=== PATIENT | male | born 1980 | race Caucasian/White ===

== ENCOUNTER 2017-05-18 22:59 | Inpatient (IN) | payer MEDICAID, SELFPAY ==
[2017-05-18 23:00] VITALS: BP 147/92; PULSE 74; RESP 16; TEMP 36.5; O2SAT 99; BMI 26.6
[2017-05-18 23:21] VITALS: BP 150/80; PULSE 80; RESP 16; O2SAT 98
--- NOTE | 2017-05-18 23:47 | ED.VISSUMM ---
- ER Visit Summary Date of Service: 05/18/17 Chief Complaint: Alcohol withdrawal History of Present Illness: The patient is a 36 M who reports that he typically drinks 4-6 cans of beer per night. States that he has wine or liquor every blue coronel. States his last drink was approximately 2 hours ago. He also reports that he has been on Xanax. He is taking 1 mg twice daily for approximately 1 year. His primary care physician was weaning him down for the past 10 days and had him on 0.5 mg twice daily. Patient reports that he was admitted to the hospital in [place] last night and discharged today and is having severe withdrawal syndrome. He describes chills, tremors, anxiety, nausea and vomiting. Physical Examination: Vitals: Stable. Afebrile. General: Well-nourished and well-developed. Head: Normocephalic atraumatic. Neck: Supple, no lymphadenopathy. No JVD. Nontender. Cardiovascular: Regular rate and rhythm. No murmurs. Respiratory: No respiratory distress. Clear to auscultation bilaterally. Abdominal: Soft, nontender, nondistended, normal bowel sounds. No guarding, rebound, or peritoneal signs. Back: Nontender. Extremities: Nontender, no edema. Skin: Normal color, no rash. Neurologic: Alert and oriented ?3. Cranial nerves II through XII are intact. Normal strength and sensation. Psych: Normal affect. Test Results: Screening labs were obtained. They are pending. Emergency Department Course and Treatment: Patient had a [facility] core of 39. He had an IV placed. He is given Zofran p.o., Ativan IV, and Librium p.o. Treatment Plan: The patient was discussed with Dr. Sparks. He will be admitted to the hospital for further relation and treatment. Disposition: Admitted in improved condition. Impression: 1. Alcohol and benzodiazepine withdrawal. This note was generated with Transmit dictation software. It may contain incorrect words, spelling, and punctuation that were not noted in review of the chart prior to signing ED Disposition - Plan for ED Patient: Chief Complaint: Subst Abuse Referrals: [facility] Doctor,Out of [Primary Care Provider] -
[2017-05-18] MEDS: chlordiazePOXIDE 25 MG Capsule 50 MG PO (23:50)
--- NOTE | 2017-05-18 23:50 | ED.DCSUM_ITS ---
- ER Visit Summary Date of Service: 05/18/17 Chief Complaint: Alcohol withdrawal History of Present Illness: The patient is a 36 M who reports that he typically drinks 4-6 cans of beer per night. States that he has wine or liquor every blue coronel. States his last drink was approximately 2 hours ago. He also reports that he has been on Xanax. He is taking 1 mg twice daily for approximately 1 year. His primary care physician was weaning him down for the past 10 days and had him on 0.5 mg twice daily. Patient reports that he was admitted to the hospital in [place] last night and discharged today and is having severe withdrawal syndrome. He describes chills, tremors, anxiety, nausea and vomiting. Physical Examination: Vitals: Stable. Afebrile. General: Well-nourished and well-developed. Head: Normocephalic atraumatic. Neck: Supple, no lymphadenopathy. No JVD. Nontender. Cardiovascular: Regular rate and rhythm. No murmurs. Respiratory: No respiratory distress. Clear to auscultation bilaterally. Abdominal: Soft, nontender, nondistended, normal bowel sounds. No guarding, rebound, or peritoneal signs. Back: Nontender. Extremities: Nontender, no edema. Skin: Normal color, no rash. Neurologic: Alert and oriented ?3. Cranial nerves II through XII are intact. Normal strength and sensation. Psych: Normal affect. Test Results: Screening labs were obtained. They are pending. Emergency Department Course and Treatment: Patient had a [facility] core of 39. He had an IV placed. He is given Zofran p.o., Ativan IV, and Librium p.o. Treatment Plan: The patient was discussed with Dr. Sparks. He will be admitted to the hospital for further relation and treatment. Disposition: Admitted in improved condition. Impression: 1. Alcohol and benzodiazepine withdrawal. This note was generated with [employer]ible Magic dictation software. It may contain incorrect words, spelling, and punctuation that were not noted in review of the chart prior to signing ED Disposition - Plan for ED Patient: Chief Complaint: Subst Abuse Referrals: [facility] Doctor,Out of [Primary Care Provider] -
--- NOTE | 2017-05-18 23:51 | HP.PCM_ITS ---
Problem List (1) Benzodiazepine withdrawal Status: Acute (2) Alcohol withdrawal Status: Acute History of Present Illness Date of Admission: 05/18/17 Chief Complaint: Benzo withdrawal The patient is a 36 year old male w/ h/o EtOH abuse and recent benzo abuse is admitted for withdrawal symptoms. He was recently admitted to a hospital in [place] and was discharged today. He drove with his sister straight from the hospital to [facility] for his severe withdrawal symptoms. He is anxious, agitated and panicking. He is not confused or disorientated. He is also experiencing auditory and visual hallucinations, although benign. He is not angry or aggressive. Nothing appeared to make his anxiety better or worse. He gets so nervous that he has tremors. He wants to be admitted for withdrawal management . He has been abusing benzo as outpt when his father a year ago. He also has had multiple withdrawal managements and has relapsed. He also has been an alcoholic and will drink 4-8 beers a night for many years. Past Medical History Allergies Penicillins Allergy (Verified 05/18/17 23:02) Swelling rosuvastatin [From Crestor] Allergy (Verified 05/18/17 23:02) Unknown Home Medications: Ambulatory Orders Medication Instructions Recorded Atorvastatin Calcium [Lipitor] 40 mg PO QHS 05/18/17 BusPIRone [Buspar] 7.5 mg PO BID 05/18/17 Escitalopram Oxalate [Lexapro] 10 mg PO DAILY 05/18/17 Metoprolol Tartrate [Lopressor 50 mg PO DAILY 05/18/17 (Beta Daniela)] Surgical History: no surgical history Lives: Alone Smoking Status: Current every day smoker Alcohol: None Drugs: None - *Family History Maternal History Items: No pertinent history Review of Systems Constitutional: Denies: Chills, Fever, Weight Change HEENT: Denies: Head Aches, Sinus Congestion, Sinus Drainage Cardiovascular: Denies: Chest Pain, Palpitations Respiratory: Denies: Cough, Shortness of breath at rest, Sputum production Gastrointestinal: Denies: Abdominal Pain, Nausea, Vomiting Genitourinary: Denies: Dysuria Musculoskeletal: Denies: Joint Pain, Joint Tenderness Skin: Denies: Rash, Wounds Neurological: Denies: Numbness, Tingling, Focal weakness Psychiatric: Denies: Anxiety, Depression, Homicidal Ideations, Suicidal Ideations Hematologic/ Lymphatic: Denies: Easy Bruising, Easy Bleeding VTE Information - Inpt Only VTE Present on Admission: No VTE Mechan Device Prophylaxis: SCD's VTE Pharm Prophylaxis ordered?: Yes Patient Problems: Active and Suspected Problems Benzodiazepine withdrawal (Acute) Alcohol withdrawal (Acute) - Physical Exam General: Alert, Oriented x3, Cooperative HEENT: Atraumatic, PERRLA, EOMI, Normocephalic Neck: Supple, No JVD, Negative Carotid Bruits Lungs: Clear to auscultation, Normal air movement Cardiovascular: Regular rate, No murmurs Abdomen: Bowel Sounds Present, Soft, Non Tender Extremities: No edema, Capillary Refill Less than 3 Seconds Skin: No rashes, No breakdown Musculoskeletal: No Tenderness to Palpation of Joints or Extremities Neurological: Cranial nerves II-XII grossly intact Psych/Mental Status: Normal Affect, Appropriate Vital Signs Temp Pulse Resp BP Pulse Ox 97.7 F L 80 16 150/80 H 98 05/18/17 23:00 05/18/17 23:21 05/18/17 23:21 05/18/17 23:21 05/18/17 23:21 Oxygen Delivery Method Room Air Weight: 79.379 kg Body Mass Index (BMI) 26.6 Assessment/Plan Active and Suspected Problems Benzodiazepine withdrawal (Acute) Alcohol withdrawal (Acute) 36 year old male w/ h/o EtOH abuse and recent benzo abuse is admitted for withdrawal symptoms. 1) Benzo withdrawal: Will start taper. Consulted [facility]. Monitor. 2) EtOH withdrawal: No e/o DT. CIWA protocol.. Monitor. 3) Prophylaxis: SCD / heparin.
[2017-05-18] MEDS: 0.9% Normal Saline 1,000 ML 1000 ML IV (23:52)
[2017-05-18] MEDS: Ondansetron ODT 4 MG Tablet PO (23:56)
[2017-05-18] MEDS: LORazepam 2 MG/ML Syringe 1 MG IV (23:56)
[2017-05-19] VITALS (13 sets, daily range): BP systolic 118–150; BP diastolic 71–89; PULSE 61–83; RESP 16–22; TEMP 36.7–37.7; O2SAT 97–99; BMI 27.5; BMI 27.6
[2017-05-19] LABS: Absolute Lymphocyte Count 2.34 X10^3/ul (0.83-4.51); Absolute Neutrophil Count 4.6 X10^3/uL (2.0-7.7); Basophil# 0.01 X10^3/uL; Basophil% 0.1 % (0-1); Eosinophil# 0.07 X10^3/uL; Eosinophils% 0.9 % (0-5); Hematocrit 41.8 % (40-54); Hemoglobin 14.8 g/dl (13.0-16.5); Lymphocyte # 2.34 X10^3/ul (4.0); Lymphocyte % 30.4 % (19-41); Mean Corp Hgb Conc 35.4 g/gl (32-36); Mean Corpuscular Hgb 32.8 pg (27.0-32.0); Mean Corpuscular Volume 92.7 fL (80-94); Monocyte# 0.72 X10^3/uL; Monocyte% 9.3 % (0-10); Neutrophil # 4.55 X10^3/uL (2.7-7.7); Platelet Count 253 K/mm3 (150-450); RBC Distribution Width CV 11.7 % (11.6-14.6); RBC Distribution Width SD 38.8 fl (35.1-43.9); Red Blood Count 4.51 M/mm3 (4.6-6.2); White Blood Count 7.7 K/mm3 (4.4-11.0)
[2017-05-19 00:02] LABS: POSITIVE COUNT NO; POSITIVE DIFFERENTIAL NO; POSITIVE MORPHOLOGY NO
[2017-05-19 00:41] LABS: Alcohol, Blood (Medical)-Serum < 3.0 mg/dL
[2017-05-19 00:42] LABS: Anion Gap 10 (5-15); BUN 7 mg/dL (7-18); BUN/Creat Ratio 8.7 RATIO (10-20); Chloride 102 mmol/L (98-107); EST Glomerular Filtration Rate 116 mL/min (>60); Est Glom Filt Rate - Afr Amer 140 mL/min (>60); Glucose 83 mg/dL (74-106); Potassium 3.6 mmol/L (3.5-5.1); Sodium Level 139 mmol/L (136-145)
[2017-05-19] MEDS: QUEtiapine 25 MG Tablet PO (01:54)
[2017-05-19] MEDS: Dicyclomine 10 MG Capsule 20 MG PO (01:54)
[2017-05-19] MEDS: Methocarbamol 750 MG Tablet PO (01:55)
[2017-05-19] MEDS: LORazepam 1 MG Tablet PO ×5 (04:42→21:10)
[2017-05-19 05:42] LABS: Absolute Lymphocyte Count 2.24 X10^3/ul (0.83-4.51); Absolute Neutrophil Count 3.1 X10^3/uL (2.0-7.7); Basophil# 0.01 X10^3/uL; Basophil% 0.2 % (0-1); Eosinophil# 0.09 X10^3/uL; Eosinophils% 1.5 % (0-5); Hematocrit 38.9 % (40-54); Hemoglobin 13.6 g/dl (13.0-16.5); Lymphocyte # 2.24 X10^3/ul (4.0); Lymphocyte % 37.4 % (19-41); Mean Corpuscular Hgb 32.5 pg (27.0-32.0); Mean Corpuscular Volume 92.8 fL (80-94); Monocyte# 0.54 X10^3/uL; Neutrophil % 51.7 % (47-70); Platelet Count 207 K/mm3 (150-450); RBC Distribution Width CV 11.7 % (11.6-14.6); RBC Distribution Width SD 38.9 fl (35.1-43.9); Red Blood Count 4.19 M/mm3 (4.6-6.2)
[2017-05-19 05:50] LABS: POSITIVE COUNT NO; POSITIVE DIFFERENTIAL NO; POSITIVE MORPHOLOGY NO
[2017-05-19 06:04] LABS: ALB/GLOB Ratio 1.2 RATIO (0.9-2.4); AST(SGOT) 28 U/L (15-37); Alanine Aminotransfer ALT/SGPT 42 U/L (16-61); Albumin, Serum 3.5 g/dL (3.2-5.0); Alkaline Phosphatase 40 U/L (45-117); Anion Gap 6 (5-15); BUN 7 mg/dL (7-18); BUN/Creat Ratio 9.9 RATIO (10-20); Calcium,Total 8.3 mg/dL (8.5-10.1); Chloride 105 mmol/L (98-107); Creatinine, Serum 0.71 mg/dL (0.70-1.30); EST Glomerular Filtration Rate 134 mL/min (>60); Est Glom Filt Rate - Afr Amer 162 mL/min (>60); Glucose 82 mg/dL (74-106); Magnesium 2.4 mg/dL (1.6-2.6); Potassium 3.6 mmol/L (3.5-5.1); Protein, Total 6.5 g/dL (6.4-8.2); Sodium Level 140 mmol/L (136-145)
--- NOTE | 2017-05-19 07:47 | PN_ITS ---
Patient Problems: Active and Suspected Problems Benzodiazepine withdrawal (Acute) Alcohol withdrawal (Acute) Subjective: Patient seated upright in bed, no acute distress, notes feeling improved since initial presentation, states symptoms are improving. Patient upon further discussion notes he was taking up to 3 mg Xanax daily although more recently states 2 mg. He notes he quit smoking approximately 2 days prior and declines nicotine patch at this time. Interested in aggressive therapies including rehabilitation facility following acute inpatient withdrawal treatment. Stressed need to await [facility] evaluation on Sunday given not available over the weekend. Patient denies fevers, chills, nausea, emesis, abdominal pain, chest pain or dyspnea. Objective: Physical Examination: General: awake, alert, oriented x 3 and cooperative, seated upright in bed in no apparent distress. Skin: normal color, turgor, no icterus, cyanosis. HEENT: AT/NC, EOMI, PERRLA, MMM. Lungs: CTA bilaterally, moderate effort, mild decrease BL bases, no rales, ronchi or wheezing. Heart: Regular rate and rhythm; no gallop, rub audible. Abdomen: soft, NTTP, ND, normal BS. Extremities: no cyanosis, clubbing, or edema. Neurological: patient awake, alert, oriented x 3; cognitive function intact; pupils equally reactive to light and accomodation; cranial nerves II-XII grossly normal, moving all 4 extremities, no focal deficits, strength mildly globally decreased. Psychiatric: affect appears normal, no acute evidence of depressive or anxiety feelings. Vitals/I&O's: Vital Signs Temp Pulse Resp BP Pulse Ox 98.1 F 63 18 118/73 99 05/19/17 04:47 05/19/17 06:00 05/19/17 04:47 05/19/17 04:47 05/19/17 04:46 Oxygen Delivery Method Room Air Weight: 173 lb 5 oz Body Mass Index (BMI) 27.5 Intake and Output for Last 24 Hours 05/17/17 05/18/17 05/19/17 23:59 23:59 23:59 Intake Total 200 / 200 Balance 200 / 200 Laboratory Results 05/19/17 05:20: WBC 6.0, RBC 4.19 L, Hgb 13.6, Hct 38.9 L, MCV 92.8, MCH 32.5 H , MCHC 35.0, RDW 11.7, RDW Differential 38.9, Plt Count 207, MPV 9.0, Immature Gran % (Auto) 0.200, Neut % (Auto) 51.7, Lymph % (Auto) 37.4, [place] % (Auto) 9.0 , Eos % (Auto) 1.5, Baso % (Auto) 0.2, Absolute Neuts (auto) 3.1, Absolute Lymphs (auto) 2.24, Total Counted Not Reportable 05/19/17 05:20: Sodium 140, Potassium 3.6, Chloride 105, Carbon Dioxide 29.0, Anion Gap 6, BUN 7, Creatinine 0.71, Estim Creat Clear Calc 129.80, Est GFR ( MDRD) Af Amer 162, Est GFR (MDRD) Non-Af 134, BUN/Creatinine Ratio 9.9 L, Glucose 82, Calcium 8.3 L, Magnesium 2.4, Total Bilirubin 0.80, AST 28, ALT 42, Alkaline Phosphatase 40 L, Total Protein 6.5, Albumin 3.5, Globulin 3.0, Albumin /Globulin Ratio 1.2 Current Medications Atorvastatin Calcium (Lipitor) 40 mg PO QHS [facility] Buspirone HCl (Buspirone Hcl) 7.5 mg PO BID [facility] Diazepam (Valium) 5 mg PO DAILY PRN PRN PRN Reason: Agitation Dicyclomine HCl (Bentyl) 20 mg PO Q6H PRN PRN PRN Reason: abdominal discomfort Last Admin: 05/19/17 01:54 Dose: 20 mg Escitalopram Oxalate (Lexapro) 10 mg PO DAILY [facility] Folic Acid (Folic Acid) 1 mg PO DAILY@0800 [facility] Stop: 05/21/17 08:01 Heparin Sodium (Porcine) (Heparin Na) 5,000 unit SC Q8 [facility] Last Admin: 05/19/17 07:05 Dose: Not Given Hydroxyzine Pamoate (Vistaril) 50 mg PO Q6H PRN PRN PRN Reason: Mild Anxiety (score 1/3) Lorazepam (Ativan) 1 mg PO Q24H PRN PRN Reason: Agitation Lorazepam (Ativan) 2 mg IV Q2H PRN PRN; Protocol PRN Reason: CIWA score > 8 but <15 Lorazepam (Ativan) 2 mg IV UD PRN; Protocol PRN Reason: CIWA score >/=15. Lorazepam (Ativan) 2 mg PO Q2H PRN PRN; Protocol PRN Reason: CIWA score > 8 but <15 Lorazepam (Ativan) 2 mg PO UD PRN; Protocol PRN Reason: CIWA score >/=15. Lorazepam (Ativan) 1 mg PO Q4H JOYCE PRN Reason: Taper Stop: 05/22/17 04:29 Last Admin: 05/19/17 04:42 Dose: 1 mg Methocarbamol (Methocarbamol) 750 mg PO Q6H PRN PRN PRN Reason: Muscle Aches Last Admin: 05/19/17 01:55 Dose: 750 mg Metoprolol Tartrate (Lopressor (Beta Daniela)) 50 mg PO DAILY [facility] Multivitamins/Minerals ([facility]) [facility] Nutritional Formula (Lactose Free) (Ensure Enlive) 120 ml PO 4X/DAY [facility] Quetiapine Fumarate (Seroquel) 25 mg PO Q6H PRN PRN PRN Reason: Moderate Anxiety (score 2/3) Last Admin: 05/19/17 01:54 Dose: 25 mg Sodium Chloride () 5 - 30 ml IV UD PRN PRN Reason: SALINE FLUSH Thiamine HCl (Vitamin B1) 100 mg PO BIDCM JOYCE Stop: 05/21/17 17:01 Assessment/Plan Active and Suspected Problems Benzodiazepine withdrawal (Acute) Alcohol withdrawal (Acute) The patient is a 36 y/o M w/ PMHx: HTN, HLD, Anxiety and Depression, Tobacco use , EtOH abuse (4-8 beers/night), BZD Abuse (Following Father's x 1 year, notes up to 3 mg per day) who presents to the [facility] ED on 05/18/17 from recent admission in [place] w/ discharge on day of [facility] presentation with worsening withdrawal sxs including auditory and visual hallucinations, tremors, increased anxiety. (1) Acute EtOH and BZD Withdrawal: Admitted to [place], routine labs obtained per ED , UDS pending, unremarkable CBC, unremarkable CMP, EtOH < 3, initiated and continue on [facility] service protocol with taper course of ativan, PRN valium , as needed Seroquel, Catapres, Bentyl, Vistaril, IV fluids, IV antiemetics, Tylenol as needed for pain. Once patient clinically improved and completion of taper nearing will plan [facility] assistance for transition to next level of rehabilitation care. Given BZD abuse, will need [facility] assistance to determine outpatient physician for BZD tapering. Mag normal, phos pending. Maintain on CIWA protocol, MVI, thiamine, folic acid supplementation. (2) Hypertension: Maintain on home metoprolol regimen, although odd choice for his age, possible BB secondary to concurrent anxiety also. (3) Hyperlipidemia: Maintain on home statin regimen. (4) Anxiety and Depression: Maintain on home regimen lexapro, buspar. (5) Tobacco Abuse: Encouraged cessation, inpatient consultation per RT, NR if desired. (6) DVT Prophylaxis: MADDY, low risk, ambulation. Code Visit Inpatient E&M: 68339 Subs Hosp L2
[2017-05-19] MEDS: Multivitamins,Ther W-Minerals Tablet 1 TABLET PO (09:19)
[2017-05-19] MEDS: Escitalopram Oxalate 10 MG Tablet PO (09:19)
[2017-05-19] MEDS: Folic Acid 1 MG Tablet PO (09:19)
[2017-05-19] MEDS: Thiamine Hydrochloride 100 MG Tablet PO ×2 (09:19→17:51)
[2017-05-19 11:16] LABS: Phosphorus 4.4 mg/dL (2.5-4.9)
[2017-05-19 14:39] LABS: Amphetamine Urine VISTA NEGATIVE (<1000 ng/mL); Barbiturate Urine VISTA NEGATIVE (< 200 ng/mL); Benzodiazepine Urine VISTA POSITIVE (< 200 ng/mL); Cocaine Urine VISTA NEGATIVE (< 300 ng/mL); Ecstacy Urine VISTA NEGATIVE (< 500 ng/mL); Methadone Urine VISTA NEGATIVE (< 300 ng/mL); PCP Urine VISTA NEGATIVE (< 25 ng/mL); THC Urine VISTA NEGATIVE (< 50 ng/mL); Vista UDS pH Range 6
[2017-05-19] MEDS: Omega-3 Acid Ethyl Esters 1 GM Capsule PO (18:41)
[2017-05-19] MEDS: Atorvastatin Calcium 40 MG Tablet PO (22:04)
[2017-05-20] VITALS (8 sets, daily range): BP systolic 99–128; BP diastolic 58–98; PULSE 59–76; RESP 16–20; TEMP 36.3–37; O2SAT 95–98
[2017-05-20] MEDS: LORazepam 1 MG Tablet PO ×4 (02:53→20:02)
[2017-05-20] MEDS: Metoprolol Tartrate 50 MG Tablet PO (06:04)
--- NOTE | 2017-05-20 07:15 | PCM.PN.HOSP ---
Patient Problems: Active and Suspected Problems Benzodiazepine withdrawal (Acute) Alcohol withdrawal (Acute) Subjective: The patient is a 36 y/o M w/ PMHx: HTN, HLD, Anxiety and Depression, Tobacco use, EtOH abuse (4-8 beers/night), BZD Abuse (Following Father's x 1 year, notes up to 3 mg per day) who presents to the [facility] ED on 05/18/17 from recent admission in [place] w/ discharge on day of [facility] presentation with worsening withdrawal sxs including auditory and visual hallucinations, tremors, increased anxiety. Admitted to [place], routine labs obtained per ED, UDS pending, unremarkable CBC, unremarkable CMP, EtOH < 3, initiated and continue on [facility] service protocol with taper course of ativan, PRN valium, as needed Seroquel, Catapres, Bentyl, Vistaril, IV fluids, IV antiemetics, Tylenol as needed for pain. Mag normal, phos normal. Maintain on CIWA protocol, MVI, thiamine, folic acid supplementation. Once patient clinically improved and completion of taper nearing will plan [facility] assistance for transition to next level of rehabilitation care. Again, discussed plan to ascertain ability to have OSH physician follow with patient for BZD taper given BZD abuse with need Sunday for [facility] assessment to determine outpatient physician for BZD tapering. Patient with no acute events overnight per self and per nursing report. He does feeling sluggish but states he did sleep well and has no acute complaints at this time. Patient denies fevers, chills, nausea, emesis, abdominal pain, chest pain or dyspnea. Objective: Physical Examination: General: awake, alert, oriented x 3 and cooperative, laying in bed, fatigued appearance this AM, sluggish. Skin: normal color, turgor, no icterus, cyanosis. HEENT: AT/NC, EOMI, PERRLA, MMM. Lungs: CTA bilaterally, moderate effort, mild decrease BL bases, no rales, ronchi or wheezing. Heart: Regular rate and rhythm; no gallop, rub audible. Abdomen: soft, NTTP, ND, normal BS. Extremities: no cyanosis, clubbing, or edema. Neurological: patient awake, alert, oriented x 3; cognitive function intact but fatigued this AM; pupils equally reactive to light and accomodation; cranial nerves II-XII grossly normal, moving all 4 extremities, no focal deficits, strength mildly globally decreased. Psychiatric: affect appears fatigued, no acute evidence of depressive or anxiety feelings. Vitals/I&O's: Vital Signs Temp Pulse Resp BP Pulse Ox 98.0 F 76 18 126/82 H 97 05/20/17 02:45 05/20/17 06:04 05/20/17 02:45 05/20/17 06:04 05/20/17 02:45 Oxygen Delivery Method Room Air Weight: 173 lb 4.992 oz Body Mass Index (BMI) 27.5 Intake and Output for Last 24 Hours 05/18/17 05/19/17 05/20/17 23:59 23:59 23:59 Intake Total 1400 / 1400 600 / 600 Balance 1400 / 1400 600 / 600 Laboratory Results 05/19/17 05:20: Phosphorus 4.4 05/19/17 13:55: Urine Opiates Screen NEGATIVE, Urine Methadone Screen NEGATIVE, Ur Barbiturates Screen NEGATIVE, Ur Phencyclidine Scrn NEGATIVE, Ur Amphetamines Screen NEGATIVE, U Methamphetamin-MDMA NEGATIVE, U Benzodiazepines Scrn POSITIVE H, Urine Cocaine Screen NEGATIVE, U Cannabinoids Screen NEGATIVE, Ur Drug Screen Comment Current Medications Atorvastatin Calcium (Lipitor) 40 mg PO QHS [facility] Last Admin: 05/19/17 22:04 Dose: 40 mg Buspirone HCl (Buspirone Hcl) 7.5 mg PO TID [facility] Last Admin: 05/20/17 06:04 Dose: 7.5 mg Diazepam (Valium) 5 mg PO DAILY PRN PRN PRN Reason: Agitation Dicyclomine HCl (Bentyl) 20 mg PO Q6H PRN PRN PRN Reason: abdominal discomfort Last Admin: 05/19/17 01:54 Dose: 20 mg Escitalopram Oxalate (Lexapro) 10 mg PO DAILY [facility] Last Admin: 05/19/17 09:19 Dose: 10 mg Folic Acid (Folic Acid) 1 mg PO DAILY@0800 [facility] Stop: 05/21/17 08:01 Last Admin: 05/19/17 09:19 Dose: 1 mg Hydroxyzine Pamoate (Vistaril) 50 mg PO Q6H PRN PRN PRN Reason: Mild Anxiety (score 1/3) Lorazepam (Ativan) 1 mg PO Q24H PRN PRN Reason: Agitation Lorazepam (Ativan) 2 mg IV Q2H PRN PRN; Protocol PRN Reason: CIWA score > 8 but <15 Lorazepam (Ativan) 2 mg IV UD PRN; Protocol PRN Reason: CIWA score >/=15. Lorazepam (Ativan) 2 mg PO Q2H PRN PRN; Protocol PRN Reason: CIWA score > 8 but <15 Lorazepam (Ativan) 2 mg PO UD PRN; Protocol PRN Reason: CIWA score >/=15. Lorazepam (Ativan) 1 mg PO Q6H [facility] PRN Reason: Taper Stop: 05/22/17 04:29 Last Admin: 05/20/17 02:53 Dose: 1 mg Methocarbamol (Methocarbamol) 750 mg PO Q6H PRN PRN PRN Reason: Muscle Aches Last Admin: 05/19/17 01:55 Dose: 750 mg Metoprolol Tartrate (Lopressor (Beta Daniela)) 50 mg PO DAILY [facility] Last Admin: 05/20/17 06:04 Dose: 50 mg Multivitamins/Minerals ([facility]itamin With Minerals) [facility] Last Admin: 05/19/17 09:19 Dose: 1 tablet Nutritional Formula (Lactose Free) (Ensure Enlive) 120 ml PO 4X/DAY [facility] Last Admin: 05/19/17 22:04 Dose: 120 ml [id number] Ethyl Esters (Lovaza) [facility] Last Admin: 05/19/17 18:41 Dose: 1 gm Quetiapine Fumarate (Seroquel) 25 mg PO Q6H PRN PRN PRN Reason: Moderate Anxiety (score 2/3) Last Admin: 05/19/17 01:54 Dose: 25 mg Sodium Chloride () 5 - 30 ml IV UD PRN PRN Reason: SALINE FLUSH Thiamine HCl ([facility]itamin B1) [facility] Stop: 05/21/17 17:01 Last Admin: 05/19/17 17:51 Dose: 100 mg Assessment/Plan Active and Suspected Problems Benzodiazepine withdrawal (Acute) Alcohol withdrawal (Acute) The patient is a 36 y/o M w/ PMHx: HTN, HLD, Anxiety and Depression, Tobacco use, EtOH abuse (4-8 beers/night), BZD Abuse (Following Father's x 1 year, notes up to 3 mg per day) who presents to the [facility] ED on 05/18/17 from recent admission in [place] w/ discharge on day of [facility] presentation with worsening withdrawal sxs including auditory and visual hallucinations, tremors, increased anxiety. (1) Acute EtOH and BZD Withdrawal: Admitted to [place], routine labs obtained per ED, UDS pending, unremarkable CBC, unremarkable CMP, EtOH < 3, initiated and continue on [facility] service protocol with taper course of ativan, PRN valium, as needed Seroquel, Catapres, Bentyl, Vistaril, IV fluids, IV antiemetics, Tylenol as needed for pain. Mag normal, phos normal. Maintain on CIWA protocol, MVI, thiamine, folic acid supplementation. Once patient clinically improved and completion of taper nearing will plan [facility] assistance for transition to next level of rehabilitation care. Again, discussed plan to ascertain ability to have OSH physician follow with patient for BZD taper given BZD abuse with need Sunday for [facility] assessment to determine outpatient physician for BZD tapering. (2) Hypertension: Maintain on home metoprolol regimen, although odd choice for his age, possible BB secondary to concurrent anxiety also. (3) Hyperlipidemia: Maintain on home statin regimen. (4) Anxiety and Depression: Maintain on home regimen lexapro, buspar. (5) Tobacco Abuse: Encouraged cessation, inpatient consultation per RT, NR if desired. (6) DVT Prophylaxis: MADDY, low risk, ambulation. Code Visit Inpatient E&M: 74975 Subs Hosp L2
[2017-05-20] MEDS: Multivitamins,Ther W-Minerals Tablet 1 TABLET PO (08:45)
[2017-05-20] MEDS: Omega-3 Acid Ethyl Esters 1 GM Capsule PO (08:45)
[2017-05-20] MEDS: Thiamine Hydrochloride 100 MG Tablet PO ×2 (08:45→17:16)
[2017-05-20] MEDS: Folic Acid 1 MG Tablet PO (08:45)
[2017-05-20] MEDS: Escitalopram Oxalate 10 MG Tablet PO (11:28)
[2017-05-20] MEDS: QUEtiapine 25 MG Tablet PO (13:35)
[2017-05-20] MEDS: Senna Tablet 2 TABLET PO (17:57)
[2017-05-20] MEDS: Acetaminophen 325 MG Tablet 650 MG PO (20:29)
[2017-05-20] MEDS: Atorvastatin Calcium 40 MG Tablet PO (22:52)
[2017-05-21] MEDS: LORazepam 1 MG Tablet PO ×3 (04:31→20:08)
[2017-05-21 04:33] VITALS: BP 117/69; PULSE 67; RESP 16; TEMP 36.9
[2017-05-21] MEDS: Omega-3 Acid Ethyl Esters 1 GM Capsule PO (09:28)
[2017-05-21 09:29] VITALS: PULSE 64
[2017-05-21] MEDS: Metoprolol Tartrate 50 MG Tablet PO (09:29)
[2017-05-21] MEDS: Thiamine Hydrochloride 100 MG Tablet PO ×2 (09:29→17:35)
[2017-05-21] MEDS: Multivitamins,Ther W-Minerals Tablet 1 TABLET PO (09:29)
[2017-05-21] MEDS: Escitalopram Oxalate 10 MG Tablet PO (09:29)
[2017-05-21] MEDS: Folic Acid 1 MG Tablet PO (09:29)
[2017-05-21 09:30] VITALS: BP 115/72; PULSE 64; RESP 16; TEMP 36.8
[2017-05-21] MEDS: QUEtiapine 25 MG Tablet PO ×2 (09:36→22:16)
--- NOTE | 2017-05-21 10:32 | CASEMGMT ---
Ama from [employer] is working w/pt. Pt does not have Medicaid at present, Ama gave pt the Medicaid number to call. Pt is from the [facility]. SW is available for any assist as needed. NORA Bruce, [employer]LOOR [employer]OVERING [employer]ER
[2017-05-21 14:50] VITALS: BP 119/74; PULSE 76; RESP 16; TEMP 36.9
--- NOTE | 2017-05-21 15:03 | CHAPLAIN ---
Type of Pastoral Visit _x__ Initial Visit ___ Follow-up Visit ___ On-call Visit ___ General Patient Visit ___ Spiritual Assessment ___ Family Conference ___ Bereavement ___ Rapid Response ___ Code Blue ___ Other (describe below) Pastoral Care Referral From _x__ Patient ___ Family ___ Nurse ___ Physician ___ Life Consultant ___ Yardage Control Operator Forming ___ Other (describe below) Sacrament/Intervention _x__ Active listening ___ Anointing ___ Quaker ___ Bereavement ___ Communion ___ Pinky exploration ___ ___ Life review ___ Prayer ___ Reconciliation ___ Sacrament of Sick _x__ Supportive presence ___ Wedding ___ Other (describe below) Pastoral Comments
--- NOTE | 2017-05-21 15:32 | PCM.PN.HOSP ---
Patient Problems: Active and Suspected Problems Benzodiazepine withdrawal (Acute) Alcohol withdrawal (Acute) Subjective: CC: Follow-up on alcohol and benzo withdrawal Symptoms have improved , he has less tremors, he is not confused , he has no hallucinations , he is alert and oriented to time place and person. Vitals/I&O's: Vital Signs Temp Pulse Resp BP Pulse Ox 98.5 F 76 16 119/74 98 05/21/17 14:50 05/21/17 14:50 05/21/17 14:50 05/21/17 14:50 05/20/17 13:40 Oxygen Delivery Method Room Air Weight: 78.613 kg Body Mass Index (BMI) 27.5 Intake and Output for Last 24 Hours 05/19/17 05/20/17 05/21/17 23:59 23:59 23:59 Intake Total 1400 / 1400 1720 / 1720 1500 / 1500 Balance 1400 / 1400 1720 / 1720 1500 / 1500 General: Alert, Oriented x3 HEENT: Atraumatic Oral: Moist Mucosa Neck: Supple, No JVD Lungs: Clear to auscultation, Normal air movement Cardiovascular: Regular rate, Regular Rhythm, Normal S1, Normal S2 Abdomen: Bowel Sounds Present, Soft Extremities: No edema Neurological: Cranial nerves II-XII grossly intact, Neuro grossly intact, Facial Droop Current Medications Acetaminophen (Tylenol) 650 mg PO Q6H PRN PRN PRN Reason: PAIN Last Admin: 05/20/17 20:29 Dose: 650 mg Atorvastatin Calcium (Lipitor) 40 mg PO QHS [facility] Last Admin: 05/20/17 22:52 Dose: 40 mg Buspirone HCl (Buspirone Hcl) 7.5 mg PO TID [facility] Last Admin: 05/21/17 14:49 Dose: 7.5 mg Diazepam (Valium) 5 mg PO DAILY PRN PRN PRN Reason: Agitation Dicyclomine HCl (Bentyl) 20 mg PO Q6H PRN PRN PRN Reason: abdominal discomfort Last Admin: 05/19/17 01:54 Dose: 20 mg Escitalopram Oxalate (Lexapro) 10 mg PO DAILY [facility] Last Admin: 05/21/17 09:29 Dose: 10 mg Hydroxyzine Pamoate (Vistaril) 50 mg PO Q6H PRN PRN PRN Reason: Mild Anxiety (score 1/3) Last Admin: 05/20/17 20:02 Dose: 50 mg Lorazepam (Ativan) 1 mg PO Q24H PRN PRN Reason: Agitation Lorazepam (Ativan) 2 mg IV Q2H PRN PRN; Protocol PRN Reason: CIWA score > 8 but <15 Lorazepam (Ativan) 2 mg IV UD PRN; Protocol PRN Reason: CIWA score >/=15. Lorazepam (Ativan) 2 mg PO Q2H PRN PRN; Protocol PRN Reason: CIWA score > 8 but <15 Lorazepam (Ativan) 2 mg PO UD PRN; Protocol PRN Reason: CIWA score >/=15. Lorazepam (Ativan) 1 mg PO Q8H [facility] PRN Reason: Taper Stop: 05/22/17 04:29 Last Admin: 05/21/17 12:01 Dose: 1 mg Methocarbamol (Methocarbamol) 750 mg PO Q6H PRN PRN PRN Reason: Muscle Aches Last Admin: 05/19/17 01:55 Dose: 750 mg Metoprolol Tartrate (Lopressor (Beta Daniela)) 50 mg PO DAILY [facility] Last Admin: 05/21/17 09:29 Dose: 50 mg [facility]ivitamins/Minerals ([facility]ivitamin With [facility]) [facility] Last Admin: 05/21/17 09:29 Dose: 1 tablet Nutritional Formula (Lactose Free) (Ensure Enlive) 120 ml PO 4X/DAY [facility] Last Admin: 05/21/17 14:49 Dose: 120 ml [id number] Ethyl Esters (Lovaza) [facility] Last Admin: 05/21/17 09:28 Dose: 1 gm Quetiapine Fumarate (Seroquel) 25 mg PO Q6H PRN PRN PRN Reason: Moderate Anxiety (score 2/3) Last Admin: 05/21/17 09:36 Dose: 25 mg Senna (Senokot) 2 tablet PO DAILY PRN PRN PRN Reason: CONSTIPATION Last Admin: 05/20/17 17:57 Dose: 2 tablet Sodium Chloride () 5 - 30 ml IV UD PRN PRN Reason: SALINE FLUSH Thiamine HCl ([facility]itamin B1) [facility] Stop: 05/21/17 17:01 Last Admin: 05/21/17 09:29 Dose: 100 mg Assessment/Plan Active and Suspected Problems Benzodiazepine withdrawal (Acute) Alcohol withdrawal (Acute) 1 Acute EtOH and BZD Withdrawal; the patient is seeing him to assist with discharge planning to an inpatient drug rehabilitation. We will off his benzodiazepine. 2. Hypertension; controlled.. 3. Anxiety and Depression; he is on Lexapro and Buspar. 4. Nicotine dependency ;the patient is recommended to quit smoking. 5. Early ambulation for DVT prophylaxis. Code Visit Inpatient E&M: 50719 Subs Hosp L3
--- NOTE | 2017-05-21 15:37 | PN_ITS ---
Patient Problems: Active and Suspected Problems Benzodiazepine withdrawal (Acute) Alcohol withdrawal (Acute) Subjective: CC: Follow-up on alcohol and benzo withdrawal Symptoms have improved , he has less tremors, he is not confused , he has no hallucinations , he is alert and oriented to time place and person. Vitals/I&O's: Vital Signs Temp Pulse Resp BP Pulse Ox 98.5 F 76 16 119/74 98 05/21/17 14:50 05/21/17 14:50 05/21/17 14:50 05/21/17 14:50 05/20/17 13:40 Oxygen Delivery Method Room Air Weight: 78.613 kg Body Mass Index (BMI) 27.5 Intake and Output for Last 24 Hours 05/19/17 05/20/17 05/21/17 23:59 23:59 23:59 Intake Total 1400 / 1400 1720 / 1720 1500 / 1500 Balance 1400 / 1400 1720 / 1720 1500 / 1500 General: Alert, Oriented x3 HEENT: Atraumatic Oral: Moist Mucosa Neck: Supple, No JVD Lungs: Clear to auscultation, Normal air movement Cardiovascular: Regular rate, Regular Rhythm, Normal S1, Normal S2 Abdomen: Bowel Sounds Present, Soft Extremities: No edema Neurological: Cranial nerves II-XII grossly intact, Neuro grossly intact, Facial Droop Current Medications Acetaminophen (Tylenol) 650 mg PO Q6H PRN PRN PRN Reason: PAIN Last Admin: 05/20/17 20:29 Dose: 650 mg Atorvastatin Calcium (Lipitor) 40 mg PO QHS [facility] Last Admin: 05/20/17 22:52 Dose: 40 mg Buspirone HCl (Buspirone Hcl) 7.5 mg PO TID [facility] Last Admin: 05/21/17 14:49 Dose: 7.5 mg Diazepam (Valium) 5 mg PO DAILY PRN PRN PRN Reason: Agitation Dicyclomine HCl (Bentyl) 20 mg PO Q6H PRN PRN PRN Reason: abdominal discomfort Last Admin: 05/19/17 01:54 Dose: 20 mg Escitalopram Oxalate (Lexapro) 10 mg PO DAILY [facility] Last Admin: 05/21/17 09:29 Dose: 10 mg Hydroxyzine Pamoate (Vistaril) 50 mg PO Q6H PRN PRN PRN Reason: Mild Anxiety (score 1/3) Last Admin: 05/20/17 20:02 Dose: 50 mg Lorazepam (Ativan) 1 mg PO Q24H PRN PRN Reason: Agitation Lorazepam (Ativan) 2 mg IV Q2H PRN PRN; Protocol PRN Reason: CIWA score > 8 but <15 Lorazepam (Ativan) 2 mg IV UD PRN; Protocol PRN Reason: CIWA score >/=15. Lorazepam (Ativan) 2 mg PO Q2H PRN PRN; Protocol PRN Reason: CIWA score > 8 but <15 Lorazepam (Ativan) 2 mg PO UD PRN; Protocol PRN Reason: CIWA score >/=15. Lorazepam (Ativan) 1 mg PO Q8H [facility] PRN Reason: Taper Stop: 05/22/17 04:29 Last Admin: 05/21/17 12:01 Dose: 1 mg Methocarbamol (Methocarbamol) 750 mg PO Q6H PRN PRN PRN Reason: Muscle Aches Last Admin: 05/19/17 01:55 Dose: 750 mg Metoprolol Tartrate (Lopressor (Beta Daniela)) 50 mg PO DAILY [facility] Last Admin: 05/21/17 09:29 Dose: 50 mg Multivitamins/Minerals ([facility]) [facility] Admin: 05/21/17 09:29 Dose: 1 tablet Nutritional Formula (Lactose Free) (Ensure Enlive) 120 ml PO 4X/DAY [facility] Last Admin: 05/21/17 14:49 Dose: 120 ml [id number] Ethyl Esters (Lovaza) [facility] Last Admin: 05/21/17 09:28 Dose: 1 gm Quetiapine Fumarate (Seroquel) 25 mg PO Q6H PRN PRN PRN Reason: Moderate Anxiety (score 2/3) Last Admin: 05/21/17 09:36 Dose: 25 mg Senna (Senokot) 2 tablet PO DAILY PRN PRN PRN Reason: CONSTIPATION Last Admin: 05/20/17 17:57 Dose: 2 tablet Sodium Chloride () 5 - 30 ml IV UD PRN PRN Reason: SALINE FLUSH Thiamine HCl [facility]amin B1) [facility] Stop: 05/21/17 17:01 Last Admin: 05/21/17 09:29 Dose: 100 mg Assessment/Plan Active and Suspected Problems Benzodiazepine withdrawal (Acute) Alcohol withdrawal (Acute) 1 Acute EtOH and BZD Withdrawal; the patient is seeing him to assist with discharge planning to an inpatient drug rehabilitation. We will off his benzodiazepine. 2. Hypertension; controlled.. 3. Anxiety and Depression; he is on Lexapro and Buspar. 4. Nicotine dependency ;the patient is recommended to quit smoking. 5. Early ambulation for DVT prophylaxis. Code Visit Inpatient E&M: 03218 Subs Hosp L3
--- NOTE | 2017-05-21 16:53 | PCM.DC ---
- Discharge Diagnoses Current Active Problems: Current Active and Chronic Problems Benzodiazepine withdrawal (Acute) Alcohol withdrawal (Acute) Discharge Activity: Return to Normal Activity Allergies/Adverse Reactions: Allergies Penicillins Allergy (Verified 05/18/17 23:02) Swelling rosuvastatin [From Crestor] Allergy (Verified 05/18/17 23:02) Unknown Medications to take at Discharge Atorvastatin Calcium [Lipitor] 40 mg PO QHS 05/18/17 BusPIRone [Buspar] 7.5 mg PO TID 05/18/17 Escitalopram Oxalate [Lexapro] 10 mg PO DAILY 05/18/17 Metoprolol Tartrate [Lopressor (Beta Daniela)] 50 mg PO DAILY 05/18/17 Fish Oil/Dha/Epa [Fish Oil 1,200 mg Fish Oil] 1 each PO 05/19/17 Primary Care Physician: Lorne Masterson,Out of [Primary Care Provider] - In 1 Day Proposed Discharge Date: 05/22/17
--- NOTE | 2017-05-21 16:55 | PCM.DC.SUM ---
Discharge Date and Diagnosis Date of Admission: 05/18/17 Date of Discharge: 05/21/17 - Primary Discharge Diagnosis Active and Suspected Problems Benzodiazepine withdrawal (Acute) Alcohol withdrawal (Acute) Hospital Course and Treatment Summary of Care Provided: This patient is a 36 y/o M w/ PMHx: HTN, HLD, Anxiety and Depression, Tobacco use, EtOH abuse (4-8 beers/night), BZD Abuse who presented to the [facility] ED on 05/18/17 from recent admission in [place] w/ discharge on day of [facility] presentation with worsening symptom complex of alcohol and benzo withdrawal . Was admitted to regular medical floor and placed on the [facility] medical stabilization protocol. He did have symptomatic improvement and was then discharged to an inpatient drug rehabilitation facility. The patient was discharged in a stable condition. Exam at the time of discharge; vital signs were stable. He was alert and oriented to time place and person. He did not appear to be any form of distress. S1 and S2 heard no murmur or gallop Lung exam was clear to auscultation with no adventitious sounds. Abdomen was soft nontender with normal bowel sounds. extremity exam did not reveal any edema, palpable pulses bilaterally. Neurologic exam was grossly intact. Discharge Diet: No Restrictions Discharge Activity: Return to Normal Activity Home Medications: Medications to take at Discharge Atorvastatin Calcium [Lipitor] 40 mg PO QHS 05/18/17 BusPIRone [Buspar] 7.5 mg PO TID 05/18/17 Escitalopram Oxalate [Lexapro] 10 mg PO DAILY 05/18/17 Metoprolol Tartrate [Lopressor (beta patrizia)] 50 mg PO DAILY 05/18/17 Primary Care Physician: Lorne Masterson,Out of [Primary Care Provider] - In 1 Day Disposition: Home Patient Condition:: Good Meaningful Use Info Meaningful Use Diagnoses (Choose all that apply): None applicable Code Visit Inpatient E&M: 56163 Disch Hosp
[2017-05-21 17:41] VITALS: BP 130/74; PULSE 67; RESP 16; TEMP 36.4
[2017-05-21 19:53] VITALS: BP 116/67; PULSE 66; RESP 18; TEMP 36.9
[2017-05-21] MEDS: Atorvastatin Calcium 40 MG Tablet PO (22:16)
[2017-05-22 05:52] VITALS: BP 112/66; PULSE 56; RESP 16; TEMP 36.9
[2017-05-22] MEDS: Acetaminophen 325 MG Tablet 650 MG PO (05:58)
[2017-05-22 07:57] VITALS: PULSE 67
[2017-05-22] MEDS: Metoprolol Tartrate 50 MG Tablet PO (07:57)
[2017-05-22] MEDS: Escitalopram Oxalate 10 MG Tablet PO (07:57)
[2017-05-22] MEDS: Omega-3 Acid Ethyl Esters 1 GM Capsule PO (07:57)
[2017-05-22] MEDS: Multivitamins,Ther W-Minerals Tablet 1 TABLET PO (07:58)
[2017-05-22 08:00] VITALS: BP 113/67; PULSE 67; RESP 18; TEMP 36.7
== END 2017-05-22 08:15 | DRG 897 ==
LOC: ED 23:46 → MS2 05-19 00:33
PROVIDERS: Family Medicine; Admitting Provider Internal Medicine; Emergency Provider Emergency Medicine; Visit Provider Internal Medicine
DX: F13.231 Sedative, hypnotic or anxiolytic dependence with withdrawal delirium (principal); F10.151 Alcohol abuse with alcohol-induced psychotic disorder with hallucinations; F13.151 Sedative, hypnotic or anxiolytic abuse with sedative, hypnotic or anxiolytic-induced psychotic disorder with hallucinations; T42.4X1A Poisoning by benzodiazepines, accidental (unintentional), initial encounter; F10.180 Alcohol abuse with alcohol-induced anxiety disorder; F13.180 Sedative, hypnotic or anxiolytic abuse with sedative, hypnotic or anxiolytic-induced anxiety disorder; F32.9 Major depressive disorder, single episode, unspecified; G25.1 Drug-induced tremor; Y92.89 Other specified places as the place of occurrence of the external cause; F41.0 Panic disorder [episodic paroxysmal anxiety]; R45.1 Restlessness and agitation; Z79.899 Other long term (current) drug therapy; F17.200 Nicotine dependence, unspecified, uncomplicated; I10 Essential (primary) hypertension; E78.5 Hyperlipidemia, unspecified
CPT/HCPCS: 36415; 80048; 80053; 80307; 80320; 83735; 84100; 85025; 97802; 99283; 99406; J7030; A4216; G0480